=== PATIENT | female | born 1965 | race Caucasian/White ===

== ENCOUNTER → 2019-09-16 15:50 | Outpatient (BNVA) | payer OTHER, SELFPAY | PROVIDERS: Family Provider Family Medicine; Referring Provider Family Medicine; Visit Provider Otolaryngology | DX: J32.9 Chronic sinusitis, unspecified (principal); G47.33 Obstructive sleep apnea (adult) (pediatric); J34.2 Deviated nasal septum; J34.3 Hypertrophy of nasal turbinates; J35.1 Hypertrophy of tonsils | CPT/HCPCS: 99203; 99214 ==

== ENCOUNTER 2019-10-09 15:22 | Outpatient (CLI) | payer OTHER, SELFPAY ==
--- NOTE | 2019-10-09 15:45 | CT_ITS ---
WS: [id number] CT PARANASAL SINUSES HISTORY: Chronic sinus problems. TECHNIQUE: Contiguous 2.5 mm axial images obtained through the sinuses. Images are reconstructed in s agittal and coronal planes. All CT scans at [facility] use at least one of these dose opt imization techniques: automated exposure control; mA and/or kV adjustment per patient size (includes targeted exams where dose is matched to clinical indication); or iterative reconstruction. DLP: 384.66 mGycm COMPARISON: None available. Frontal sinuses: Normal. Sphenoid sinus: Normal. Ethmoid sinuses: Normal. Maxillary sinus: Normal. Ostiomeatal unit: Normal. Increase fluid density and soft tissue in the RIGHT nasal lacrimal duct. Conchal bullosa RIGHT middle turbinate. Nasal septum is midline. CT/CT sinus wo con* [id number] IMPRESSION:1 1. No significant paranasal sinus disease. 2. Increase fluid/soft tissue attenuation filling the RIGHT nasolacrimal duct.
== END 2019-10-09 15:23 | disposition home or self-care (01) ==
LOC: RADWPI 15:28
PROVIDERS: Family Provider Family Medicine; PCP Family Medicine; Visit Provider Otolaryngology
DX: J32.9 Chronic sinusitis, unspecified (principal)
CPT/HCPCS: 70486

== ENCOUNTER → 2019-10-23 09:40 | Outpatient (BNVA) | payer OTHER, SELFPAY | PROVIDERS: Family Provider Family Medicine; PCP Family Medicine; Visit Provider Otolaryngology | DX: J34.2 Deviated nasal septum (principal); J34.3 Hypertrophy of nasal turbinates; G47.33 Obstructive sleep apnea (adult) (pediatric); J32.9 Chronic sinusitis, unspecified; J35.1 Hypertrophy of tonsils | CPT/HCPCS: 99214 ==

== ENCOUNTER 2020-05-03 15:19 | Outpatient (CLI) | payer OTHER, SELFPAY ==
--- NOTE | 2020-05-03 15:30 | MM_ITS ---
WS: [id number] SCREENING DIGITAL MAMMOGRAM WITH CAD HISTORY: SCREENING COMPARISON: 03/26/2019 and 03/24/2018 Bilateral CC and MLO views submitted. Computer aided detection analyzed. Breast composition: The breasts are almost entirely fatty. No suspicious masses, microcalcifications or architectural distortion. MM/[place] [id number] IMPRESSION: BI-RADS: 1-Negative FOLLOW UP: 1 Year Follow-up
== END 2020-05-03 15:20 | disposition home or self-care (01) ==
LOC: RADSHAW 15:24
PROVIDERS: PCP Family Medicine; Visit Provider Family Medicine
DX: Z12.31 Encounter for screening mammogram for malignant neoplasm of breast (principal)
CPT/HCPCS: 77067

== ENCOUNTER 2020-05-15 08:45 | Emergency (ER) | payer OTHER, SELFPAY ==
[2020-05-15] VITALS (10 sets, daily range): BP systolic 141–171; BP diastolic 63–103; PULSE 81–120; RESP 16–20; TEMP 37.1–39; O2SAT 88–96; BMI 41.5
--- NOTE | 2020-05-15 08:55 | XRR_ITS ---
PROCEDURE INFORMATION: Exam: XR Chest, 1 View Exam date and time: 05/15/2020 8:56 AM Age: 54 years old Clinical indication: Shortness of breath; Additional info: SOB TECHNIQUE: Imaging protocol: XR of the chest Views: 1 view. COMPARISON: No relevant prior studies available. FINDINGS: Lungs: Subtle patchy airspace disease of a somewhat reticulonodular nature most pronounced within the right lower lobe. Pleural space: Unremarkable. No pleural effusion. No pneumothorax. Heart/Mediastinum: The cardiac silhouette appears enlarged, some of which is magnification related to the AP projection. Bones/joints: Unremarkable. XR/XR chest 1V portable [id number] IMPRESSION: Subtle patchy airspace disease of a somewhat reticulonodular nature most pronounced within the right lower lobe. Consider CT chest.
--- NOTE | 2020-05-15 09:00 | ED_ITS ---
HPI - General Adult General: Chief complaint: Upper Respiratory Infection Stated complaint: SOB/PRODUCTIVE COUGH/FATIGUE Time Seen by Provider: 05/15/20 08:55 History of Present Illness: HPI narrative: Patient complains about a cough last 3 days and is productive. Coughed up some dark thick sputum. Denies any fever chills COVID symptoms denies any muscle aches. Says she does feel weak has history of sinus problems recently had surgery nasal back in February. She says that is doing better. complaint: Cough productive Onset (ago): day(s) Severity: mild Associated symptoms: Reports short of breath and weakness; Deny chest pain, dyspnea, headache(s), nausea, rash or vomiting Review of Systems Const: Denies: fever(s), chills or body aches Eyes: Denies: change in vision or blurry vision ENMT: Denies: throat pain or nasal congestion Card: Denies: chest pain or dyspnea on exertion Resp: Reports: productive cough; Denies: dyspnea or non-productive cough GI: Denies: abdominal pain, nausea or vomiting Musc: Denies: extremity pain Skin/Breast: Denies: rash Neuro: Denies: headache(s) Psych: Denies: anxiety or depression Selvin/Lymph: Denies: easy bruising PFSH ED PFSH: Medical History Chronic sinusitis Deviated septum Nasal turbinate hypertrophy Tonsillar hypertrophy Family History Mother Cancer Social History (Updated 05/15/20 @ 08:54 by Keo Ernst RN) Smoking and tobacco status: never smoked Alcohol intake: never Substance/Drug Use: never History of recent travel: No Physical Exam Const: COMMON NORMALS: no acute distress, average body habitus and patient oriented x3 HENMT: COMMON NORMALS: normocephalic HEAD & SCALP: normal to inspection and normocephalic FACE & SINUS: normal facial exam Eye: COMMON NORMALS: conjunctivae normal GENERAL EYE: appearance normal, both eyes and all related structures CONJUNCTIVA: Yes conjunctivae normal Neck/C-Spine: COMMON NORMALS: no JVD Chest: COMMONS NORMALS: normal inspection of the chest Resp: COMMON NORMALS: normal respiratory effort and clear to auscultation bilaterally AUSCULTATION: clear to auscultation bilaterally Cardio: COMMON NORMALS: no JVD, regular rate and regular rhythm RATE: regular rate RHYTHM: regular rhythm GI: COMMON NORMALS: Normal to inspection, nondistended, normoactive bowel sounds present Extremity: COMMON NORMALS: normal to inspection and full ROM Neuro: COMMON NORMALS: patient oriented x3 Course Vital Signs: Vital signs: Vital Signs Temperature 102.2 F H 05/15/20 09:43 Pulse Rate 111 H 05/15/20 09:43 Respiratory Rate 16 05/15/20 09:43 Blood Pressure 153/86 05/15/20 09:43 Pulse Oximetry 96 05/15/20 09:43 MDM - General Adult MDM Narrative: Medical decision making narrative: Patient spiked a fever while here sats decreased down to 88% while here from 94% in triage. Lab Data: Labs: Lab Results 05/15/20 05/15/20 Range/Units 09:30 09:40 WBC 8.5 (4.0-10.0) 10^3/ uL RBC 4.18 (4.1-5.3) 10^6/u L Hgb 11.5 (11.5-15.3) g/dL Hct 35.3 L (37.0-47.0) % MCV 84.4 (81-99) fL MCH 27.5 L (28.0-34.0) pg MCHC 32.6 (30.0-36.0) g/dL RDW 13.2 (12.1-15.1) % Plt Count 299 (130-400) 10^3/c mm MPV 10.6 H (7.4-10.4) fL Neut % (Auto) 83.1 % Lymph % (Auto) 8.3 % Concho % (Auto) 7.2 % Eos % (Auto) 0.4 % Baso % (Auto) 0.2 % Neut # (Auto) 7.07 (1.8-7.7) 10^3/u L Lymph # (Auto) 0.7 L (0.8-4.8) 10^3/u L Concho # (Auto) 0.6 (0.2-0.9) 10^3/u L Eos # (Auto) 0.0 (0.0-0.8) 10^3/u L Baso # (Auto) 0.0 (0.0-0.1) 10^3/u L Nucleated RBC % (a uto) 0 % Nucleated RBCs # 0.0 /100WBC Specimen Type Arterial Sample Site Radial, right ABG pH 7.46 H (7.35-7.45) ABG pCO2 40.4 (35-45) mmHg ABG pO2 74.6 L (80.0-100.0) mmH g ABG HCO3 28.5 H (22-26) mmol/L ABG Base Excess 4.3 H (-2.0-2.0) mmol/ L Tevin Test Pos Hematocrit 37.9 (37-47) % O2 Delivery Device Nc O2 Liters/Min 2.0 % FiO2 28.0 % Supercalender Operator Helper ID Gd Discharge Plan Discharge Prescriptions: No Action One-A-Day Women's 50 Plus 400-20 mcg tablet 1 tab PO DAILY RF: 0 losartan 50 mg tablet 50 mg PO DAILY RF: 0 omeprazole 20 mg capsule,delayed release(DR/EC) 20 mg PO BID RF: 0 Coding Level of Care Code ED Senior Corporate Strategy Manager for Chg Fwd Exam Comprehensive
--- NOTE | 2020-05-15 09:05 | PC.NURSE ---
O2 sats on room air is 87-88%, placed NC at 2 lpms brought O2 sats to 92%
--- NOTE | 2020-05-15 09:14 | ECG_ITS ---
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 Measurements Intervals Avant Rate: 116 P: 57 WA: 165 QRS: 1 QRSD: 91 T: 15 QT: 309 QTc: 430 Interpretive Statements SINUS TACHYCARDIA ABNORMAL RHYTHM ECG No previous ECG available for comparison Electronically Signed On 05-15-2020 19:13:57 CDT by Jerad Bowden M.D. [id number]
[2020-05-15 09:48] LABS: ABG PCO2 40.4 mmHg (35-45); ABG PH Result 7.46 (7.35-7.45); Arterial Blood Gas Hematocrit 37.9 % (37-47); Base Excess ABG 4.3 mmol/L (-2.0-2.0); Blood Gas Allen Test Pos; Blood Gas Operator Identificat GD; Blood Gas Sample Site Radial, right; Blood Gas Sample Type Arterial; HCO3 ABG 28.5 mmol/L (22-26); Oxygen Device NC; PO2 ABG 74.6 mmHg (80.0-100.0)
[2020-05-15 09:48] LABS: Basophils % 0.2 %; Eosinophils % 0.4 %; Hematocrit 35.3 % (37.0-47.0); Hemoglobin 11.5 g/dL (11.5-15.3); Lymphocytes # 0.7 10^3/uL (0.8-4.8); Lymphocytes % 8.3 %; Mean Corpuscular HGB Conc 32.6 g/dL (30.0-36.0); Mean Corpuscular Hemoglobin 27.5 pg (28.0-34.0); Mean Corpuscular Volume 84.4 fL (81-99); Mean Platelet Volume 10.6 fL (7.4-10.4); Monocytes # 0.6 10^3/uL (0.2-0.9); Monocytes % 7.2 %; Neutrophils # 7.07 10^3/uL (1.8-7.7); Neutrophils % 83.1 %; Nucleated Red Blood Cells % 0 %; Platelet Count 299 10^3/cmm (130-400); Red Blood Count 4.18 10^6/uL (4.1-5.3); Red Cell Distribution Width 13.2 % (12.1-15.1); White Blood Count 8.5 10^3/uL (4.0-10.0)
[2020-05-15 09:58] LABS: Fibrinogen 798 mg/dL (174-498)
[2020-05-15 10:01] LABS: D Dimer 0.96 ug/mIFEU (0-0.59)
[2020-05-15 10:02] LABS: Lactic Sepsis W/Reflex 0.8 mmol/L (0.5-2.2)
[2020-05-15 10:13] LABS: NT Pro B Type Natriuretic Pept 124 pg/mL (0-125); Procalcitonin 0.22 ng/mL (0-0.5)
[2020-05-15 10:25] LABS: Alanine Aminotransferase 31 U/L (0-33); Albumin Level 3.9 g/dL (3.5-5.2); Alkaline Phosphatase 148 IU/L (35-105); Anion Gap 16.6 (5-19); Aspartate Amino Transferase 28 U/L (0-32); Blood Urea Nitrogen 7 mg/dL (6-20); C Reactive Protein 179.5 mg/L (0.0-4.9); Calcium 8.9 mg/dL (8.5-10.5); Carbon Dioxide 25 mmol/L (22-29); Chloride 102 mmol/L (98-107); Ferritin 566 ng/mL (15-150); Globulin 3.1 g/dL (1.3-4.6); Glomerular Filtration Rate 128.1 mL/min (90-130); Glucose 104 mg/dL (65-115); Lactate Dehydrogenase 331 U/L (135-214); Osmolality Calculated 288 mOsm/kg (285-295); Potassium 3.6 mmol/L (3.5-5.1); Sodium 140 mmol/L (136-145); Total Bilirubin 0.5 mg/dL (0.15-1.2)
--- NOTE | 2020-05-15 10:29 | CTR_ITS ---
PROCEDURE INFORMATION: Exam: CT Angiography Chest With Contrast Exam date and time: 05/15/2020 10:30 AM Age: 54 years old Clinical indication: Shortness of breath; Additional info: SOB TECHNIQUE: Imaging protocol: Computed tomographic angiography of the chest with intravenous contrast. 3D rendering (Not supervised by radiologist): MIP and/or 3D reconstructed images were created by the technologist. Radiation optimization: All CT scans at this facility use at least one of these dose optimization techniques: automated exposure control; mA and/or kV adjustment per patient size (includes targeted exams where dose is matched to clinical indication); or iterative reconstruction. Contrast material: OMNIPAQUE 350; Contrast volume: 95 ml; Contrast route: INTRAVENOUS (IV); COMPARISON: CR (CHEST, ) 05/15/2020 9:04 AM RADIATION DOSE METRICS: Total DLP (mGy-cm): 547.92 FINDINGS: Pulmonary arteries: No dissection. No visualized embolism as characterized to the most proximal segmental level. Consider alternative form of imaging if indicated. Aorta: Unremarkable. No aortic aneurysm. No aortic dissection. Lungs: Patchy diffuse alveolar airspace disease of a somewhat ground-glass nature. Please correlate. Favor pneumonic process.Covid within the differential diagnosis. Pleural space: Unremarkable. No pneumothorax. No pleural effusion. Heart: No pericardial effusion Mediastinal space: Soft tissues of the mediastinum appear unremarkable. Lymph nodes: Numerous calcified lymph nodes are present within the mediastinum and hilum. These are likely the radiographic manifestation of granulomatous disease. Bones/joints: Unremarkable. No acute fracture. Soft tissues: Unremarkable. Other findings: thoracic inlet is unremarkable. CT/CT angio chest PE protcl [id number] IMPRESSION: 1. No dissection. No visualized embolism as characterized to the most proximal segmental level. Consider alternative form of imaging if indicated. 2. Patchy diffuse alveolar airspace disease of a somewhat ground-glass nature. Please correlate. Favor pneumonic process.Covid within the differential diagnosis. Radiation Dose CTDIVOL = (mGy): DLP = 547.92 (mGy-cm)
[2020-05-15 10:50] LABS: Influenza A by IFA Negative (Negative); SARS Covid-2 Antigen Negative (Negative)
[2020-05-15 10:51] LABS: Influenza B by IFA Negative (Negative)
[2020-05-15] MEDS: acetaminophen 500 mg Tablet 1000 MG PO (11:22)
[2020-05-15] MEDS: iohexol 350 mg/mL 100 mL Btl IV (12:27)
[2020-05-15] MEDS: predniSONE 20 mg Tablet 60 MG PO (13:22)
--- NOTE | 2020-05-15 13:23 | PC.NURSE ---
Respiratory therapist in room , evaluating breathing and O2 sats
--- NOTE | 2020-05-16 09:49 | DCPLANNER ---
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 industrial production manager called [facility], spoke with Krupa, gave clinic patients information. A follow up appointment was scheduled for Saturday, May 23, 2020 at 1:[address] Persaud at [facility]. Clinic will call patient with appointment information.
[2020-05-18 07:55] LABS: Coronavirus Lab Test PTC Positive
--- NOTE | 2020-05-18 09:33 | PC.NURSE ---
pt called and informed of her covid results
--- NOTE | 2020-05-28 09:25 | DCPLANNER ---
Patient had a follow up appointment scheduled for 05.23.20 with pulmonology - patient did attend appointment.
== END 2020-05-15 14:30 | disposition home or self-care (01) ==
PROVIDERS: Emergency Provider Nurse Practitioner Family; PCP Family Medicine
DX: R06.02 Shortness of breath (principal); U07.1 COVID-19
CPT/HCPCS: 12345; 36600; 71045; 71275; 80053; 82728; 82803; 83605; 83615; 83735; 83880; 84145; 85025; 85378; 85384; 86140; 87426; 87635; 87804; 93005; 99283; 99284; J7512; Q9967

== ENCOUNTER 2021-01-30 10:53 | Outpatient (CLI) | payer OTHER, SELFPAY ==
--- NOTE | 2021-01-30 11:05 | XR_ITS ---
WS: [id number] Exam: XR hip LT 2-3V wo/w pel* [id number] Date/Time of Exam: 01/30/2021 11:15 AM Reason For Exam: LEFT HIP PAIN No acute fracture or dislocation. Mild degenerative changes of the acetabulum. Normal soft tissues. XR/XR hip LT 2-3V wo/w pel* [id number] IMPRESSION: 1. Minimal degenerative change. No fracture or dislocation.
== END 2021-01-30 10:54 | disposition home or self-care (01) ==
LOC: RAD 10:59
PROVIDERS: PCP Family Medicine; Visit Provider Family Medicine
DX: M25.552 Pain in left hip (principal)
CPT/HCPCS: 73502

== ENCOUNTER 2021-06-30 13:50 | Outpatient (CLI) | payer OTHER, SELFPAY ==
--- NOTE | 2021-06-30 13:59 | MM_ITS ---
WS: [id number] BILATERAL DIGITAL SCREENING MAMMOGRAPHY WITH CAD CLINICAL INFORMATION: SCREENING HISTORY: Screening mammogram. No current complaints. COMPARISON: May 03, 2020 TECHNIQUE: Bilateral CC and MLO views. FINDINGS: Scattered fibroglandular densities bilaterally. No suspicious focal mass, asymmetry, calcifications, or architectural distortion. No evidence of malignancy. MM/[place] [id number] IMPRESSION: BI-RADS: 1-Negative FOLLOW UP: 1 Year Follow-up Recommend return to annual screening mammography.
== END 2021-06-30 13:51 | disposition home or self-care (01) ==
LOC: RADSHAW 13:56
PROVIDERS: PCP Family Medicine; Visit Provider Family Medicine
DX: Z12.31 Encounter for screening mammogram for malignant neoplasm of breast (principal)
CPT/HCPCS: 77067

== ENCOUNTER 2021-09-01 10:44 | Outpatient (CLI) | payer OTHER, SELFPAY ==
[2021-09-01 10:57] VITALS: BP 155/88; PULSE 100; RESP 16; TEMP 36.6; O2SAT 95; BMI 43.9
[2021-09-01 11:30] VITALS: BP 150/83; PULSE 92; RESP 16; TEMP 36.2; O2SAT 95
[2021-09-01 12:25] VITALS: BP 146/85; PULSE 94; RESP 16; TEMP 36.8; O2SAT 93
== END 2021-09-01 10:45 | disposition home or self-care (01) ==
LOC: OPS 10:51
PROVIDERS: PCP Family Medicine; Visit Provider Family Medicine
DX: U07.1 COVID-19 (principal)
CPT/HCPCS: 96365

== ENCOUNTER → 2022-02-14 16:19 | Outpatient (BNVA) | payer OTHER, SELFPAY | PROVIDERS: PCP Family Medicine; Visit Provider Family Medicine | DX: R60.9 Edema, unspecified (principal); I10 Essential (primary) hypertension; G47.33 Obstructive sleep apnea (adult) (pediatric) | CPT/HCPCS: 80053; 80061 ==

== ENCOUNTER → 2022-06-26 18:11 | Outpatient (BNVA) | payer OTHER, SELFPAY | PROVIDERS: PCP Family Medicine; Visit Provider Family Medicine | DX: U07.1 COVID-19 (principal); J32.9 Chronic sinusitis, unspecified; J35.1 Hypertrophy of tonsils; G47.33 Obstructive sleep apnea (adult) (pediatric) | CPT/HCPCS: 87426 ==

== ENCOUNTER 2022-07-11 09:24 | Outpatient (CLI) | payer OTHER, SELFPAY ==
--- NOTE | 2022-07-11 09:34 | MM_ITS ---
WS: [id number] SCREENING DIGITAL TOMOSYNTHESIS MAMMOGRAM WITH CAD HISTORY: SCREENING COMPARISON: 06/30/2021 and 05/03/2020 Bilateral CC and MLO with tomosynthesis views submitted. Synthetic mammography reviewed. Computer aid ed detection analyzed. Breast composition: The breasts are almost entirely fatty. No suspicious masses, microcalcifications or architectural distortion. MM/[place] [id number] IMPRESSION: BI-RADS: 1-Negative FOLLOW UP: 1 Year Follow-up
== END 2022-07-11 09:25 | disposition home or self-care (01) ==
LOC: RAD 09:25
PROVIDERS: PCP Family Medicine; Visit Provider Family Medicine
DX: Z12.31 Encounter for screening mammogram for malignant neoplasm of breast (principal)
CPT/HCPCS: 77063; 77067

== ENCOUNTER 2022-08-30 06:12 | Outpatient (CLI) | payer OTHER, SELFPAY ==
--- NOTE | 2022-08-30 06:30 | US_ITS ---
WS: [id number] Complete ABDOMINAL ULTRASOUND HISTORY: RUQ pain COMPARISON: None available. Liver: 17.6 cm in length. Liver is top normal size. Diffuse coarsened echotexture. Poor visualization of the liver due to attenuation. The entire liver is not well visualized. No bile duct dilatation. Portal Vein: Normal hepatopetal flow with monophasic waveform. Gallbladder: Normally distended with no gallstones, wall thickening or pericholecystic fluid. Pancreas: Poorly visualized due to body habitus. CBD: 0.7 cm. Right kidney: 9.2 cm x 6.0 cm x 5.6 cm. No mass, cortical thickening or hydronephrosis. Left kidney: 10.3 cm x 6.5 cm x 4.5 cm. No mass, cortical thickening or hydronephrosis. Spleen: Normal size and echogenicity. Abdominal aorta and IVC are within normal limits. No ascites. US/US abdomen complete* [id number] IMPRESSION: 1. Quality of this examination is compromised by body habitus. 2. Poorly visualized liver with changes of hepatic steatosis. 3. Normal gallbladder. 4. No renal obstruction.
== END 2022-08-30 06:13 | disposition home or self-care (01) ==
LOC: RAD 06:14
PROVIDERS: PCP Family Medicine; Visit Provider Family Medicine
DX: R10.11 Right upper quadrant pain (principal)
CPT/HCPCS: 76700; 80053; 80061; 83036; 85025

== ENCOUNTER → 2023-03-04 12:17 | Outpatient (BNVA) | payer OTHER, SELFPAY | PROVIDERS: PCP Family Medicine; Visit Provider Family Medicine | DX: I10 Essential (primary) hypertension (principal); Z13.6 Encounter for screening for cardiovascular disorders | CPT/HCPCS: 80053; 80061 ==

== ENCOUNTER 2023-07-23 09:16 | Outpatient (CLI) | payer OTHER, SELFPAY ==
--- NOTE | 2023-07-23 09:19 | MM_ITS ---
WS: [id number] BILATERAL 3D TOMOSYNTHESIS DIGITAL SCREENING MAMMOGRAM WITH CAD CLINICAL INFORMATION: SCREENING HISTORY: Screening mammogram. No current complaints. COMPARISON: 2021 TECHNIQUE: Bilateral CC and MLO views. FINDINGS: Fatty-replaced breasts bilaterally. No suspicious focal mass, asymmetry, calcifications, or architect intern ural distortion. No evidence of malignancy. A few tiny incidental punctate calcifications. IMPRESSION: MM/[place] [id number] BI-RADS: 2-Benign FOLLOW UP: 1 Year Follow-up Recommend return to annual screening mammography.
== END 2023-07-23 09:17 | disposition home or self-care (01) ==
LOC: RAD 09:17
PROVIDERS: PCP Family Medicine; Visit Provider Family Medicine
DX: Z12.31 Encounter for screening mammogram for malignant neoplasm of breast (principal)
CPT/HCPCS: 77063; 77067

== ENCOUNTER → 2024-03-16 08:23 | Outpatient (BNVA) | payer OTHER, SELFPAY | PROVIDERS: PCP Family Medicine; Visit Provider Family Medicine | DX: I10 Essential (primary) hypertension (principal); Z13.6 Encounter for screening for cardiovascular disorders | CPT/HCPCS: 80053; 80061; 83036 ==

== ENCOUNTER 2024-08-14 09:43 | Outpatient (CLI) | payer OTHER, SELFPAY ==
--- NOTE | 2024-08-14 09:46 | MM_ITS ---
WS: [id number] BILATERAL SCREENING DIGITAL TOMOSYNTHESIS MAMMOGRAM WITH CAD HISTORY: SCREENING COMPARISON: 07/23/2023, 07/11/2022 Bilateral CC and MLO views with tomosynthesis and synthetic mammography submitted. Computer aided det ection analyzed. Breast composition: The breasts are almost entirely fatty. No suspicious masses, microcalcifications or architectural distortion. MM/MM scr BI tomosynthesis [id number] IMPRESSION: BI-RADS: 1 - Negative. FOLLOW UP: 1 Year Follow-up
== END 2024-08-14 09:44 | disposition home or self-care (01) ==
LOC: RAD 09:44
PROVIDERS: PCP Family Medicine; Visit Provider Family Medicine
DX: Z12.31 Encounter for screening mammogram for malignant neoplasm of breast (principal); R92.313 Mammographic fatty tissue density, bilateral breasts
CPT/HCPCS: 77063; 77067

== ENCOUNTER → 2025-03-11 15:41 | Outpatient (BNVA) | payer OTHER, SELFPAY | PROVIDERS: PCP Family Medicine; Visit Provider Family Medicine | DX: Z00.00 Encounter for general adult medical examination without abnormal findings (principal); I10 Essential (primary) hypertension; E03.9 Hypothyroidism, unspecified | CPT/HCPCS: 80053; 80061; 82306; 82607; 83036; 84443; 85025 ==

== ENCOUNTER 2025-08-16 11:33 | Outpatient (CLI) | payer OTHER, SELFPAY ==
--- NOTE | 2025-08-16 11:42 | MM_ITS ---
WS: [id number] BILATERAL SCREENING DIGITAL TOMOSYNTHESIS MAMMOGRAM WITH CAD HISTORY: ANNUAL SCREENING COMPARISON: 08/14/2024, 07/23/2023, 07/11/2022 Bilateral CC and MLO views with tomosynthesis and synthetic mammography submitted. Computer aided detection analyzed. Breast composition: The breasts are almost entirely fatty. No suspicious masses, microcalcifications or architectural distortion. MM/MM scr BI tomosynthesis [id number] IMPRESSION: BI-RADS: 1 - Negative. FOLLOW UP: 1 Year Follow-up
== END 2025-08-16 11:34 | disposition home or self-care (01) ==
LOC: RAD 11:34
PROVIDERS: PCP Family Medicine; Visit Provider Family Medicine
DX: Z12.31 Encounter for screening mammogram for malignant neoplasm of breast (principal); R92.313 Mammographic fatty tissue density, bilateral breasts
CPT/HCPCS: 77063; 77067